=== PATIENT | male | born 1980 | race Caucasian/White ===

== ENCOUNTER 2021-08-07 10:43 | Emergency (ER) | payer OTHER, SELFPAY ==
[2021-08-07 11:02] VITALS: BP 147/83; PULSE 100; RESP 16; TEMP 36.6; O2SAT 97
--- NOTE | 2021-08-07 11:28 | ED.GENADULT ---
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 Has pain of 3 out of 10 is tender to touch-patient states certain activities cause a radiating pain into the right inguinal area Related Data Home Medications Medication Instructions Recorded Confirmed omeprazole 40 mg PO DAILY 08/07/21 08/07/21 Allergies Allergy/AdvReac Type Severity Reaction Status Date / Time No Known Allergies Allergy Verified 08/07/21 11:15 Review of Systems Review of Systems: CONSTITUTIONAL: Denies fever, chills, sweats. EYES: Denies visual changes, redness, discharge. ENT: Denies rhinorrhea, congestion, sore throat, otalgia. CARDIOVASCULAR: Denies chest pain, palpitations, edema. RESPIRATORY: Denies dyspnea, wheezing, cough GASTROINTESTINAL: Denies abdominal pain, nausea, vomiting, diarrhea. Has a lump along navel that he states occurred after being at work GENITOURINARY: Denies dysuria, hematuria, abnormal discharge SKIN: Denies rash or itching. NEUROLOGIC: Denies numbness, or focal weakness. PSYCHIATRIC: Denies anxiety or depression. [facility] Past Medical History Medical History GERD (gastroesophageal reflux disease) Family History Family History (Updated 08/07/21 @ 11:39 by Jennifer Pruitt CNP) Other Hypertension Social History Social History (Updated 08/07/21 @ 11:39 by Jennifer Pruitt CNP) Smoking packs per day: 0.5 Smoking cigarettes per day: 10.0 Smoking status: Current every day smoker Alcohol intake: current Comments At time of signature, I agree with nursing past medical, surgical, social and family history. There is no relevant family history pertinent to the presenting complaint. Patient's blood pressure is elevated is probably due to the situation with Workmen's Comp. and his job and trying to get out of care but has an appointment with his primary care physician on August 16 Exam Narrative: GENERAL: This is a well-nourished, well-developed patient, in mild distress. HEAD: normocephalic, atraumatic. EYES: Sclera clear/white. Vision is grossly intact. EARS: External ears normal. Hearing grossly intact. NOSE: External nose normal without nasal discharge, nares without redness, no rhinorrhea. THROAT: Mucous membranes moist, NECK: Neck supple, non-tender CARDIOVASCULAR: Regular rate and rhythm without murmurs, gallops, or rubs. RESPIRATORY: Clear to auscultation. Breath sounds equal bilaterally. No wheezes, rales, or rhonchi. GASTROINTESTINAL: Abdomen soft, positive bowel sounds, 4 x 6 periumbilical region that appears to be hernia on right of umbilicus SKIN: warm, intact with no suspicious lesions or rash, good texture and turgor. NEURO: awake, alert, and oriented to person, place and time. There were no obvious focal neurologic abnormalities. Steady gait EXTREMITIES: Normal range of motion. BACK: Nontender without deformity Course Course Emergency Course: Patient comes to [facility] for evaluation of what appears to be in a periumbilical hernia that was caused through activity done at work Physical exam shows a 6 x 4 tender soft lesion to the right umbilical area and will require CT of the abdomen and pelvis along with referral to general surgery Given general surgeon on-call he is to see his primary care physician later in the little over a week and yvonne
== END 2021-08-07 11:59 | disposition home or self-care (01) ==
PROVIDERS: Emergency Provider Nurse Practitioner; PCP Nurse Practitioner Family
DX: K42.9 Umbilical hernia without obstruction or gangrene (principal); F17.210 Nicotine dependence, cigarettes, uncomplicated
CPT/HCPCS: 99211; G0463

== ENCOUNTER → 2021-09-28 01:54 | Outpatient (CLI) | payer OTHER, SELFPAY ==
[2021-09-28 14:46] LABS: SARS-CoV-2 RNA PCR Negative
== END ==
PROVIDERS: PCP Nurse Practitioner Family; Visit Provider Surgery
DX: Z01.812 Encounter for preprocedural laboratory examination (principal); Z20.822 Contact with and (suspected) exposure to COVID-19
CPT/HCPCS: C9803; U0003; U0005

== ENCOUNTER 2021-10-02 00:51 | Day surgery (SDC) | payer OTHER, SELFPAY ==
[2021-09-25 15:08] VITALS: BMI 33.0
--- NOTE | 2021-09-25 15:11 | SUR.PREOP ---
Report to the Outpatient Waiting Room, entrance under the green pavilion located off [facility], at time 0800_ on date _10/02/21_. OR Time: _1000 . - A mask is required within the hospital. . Preoperative COVID Testing Requirements: No COVID Test needed if: (proof is required; if not received patient will have Rapid Test prior to entry) - Patient has received COVID Vaccine at least 14 days prior to procedure date or - Patient has positive COVID test result within last 90 days of surgery date. COVID Test needed if above criteria is not met If not COVID vaccinated a COVID test must be conducted within 72 hours of surgery and patient is asked to isolate self from time of testing until procedure. You will go to the [facility] for your COVID testing. The [employer] [facility] site is located at the corner of [address] [facility]. You will only be called if COVID results are positive and your surgeon may reschedule your elective surgery date. Patients may have clear liquids (water, carbonated beverages, clear teas, apple juice) until 3 hours prior to surgery with a maximum of 20 ounces. - No food from midnight until time of surgery - Infants may have breast milk until 4 hours before surgery, infant formula 6 hours prior to surgery. - Children will be allowed to drink immediately following surgery. If applicable, please bring a bottle or sippy cup to assist with drinking. Juice, water, soda, and popsicles are readily available. For infants on formula, please bring formula the day of surgery. Pacifiers are allowed. Take the following medications with a SIP of water the morning of surgery: n/a Medications to discontinue per physician n/a Date to take last dose__n/a Please no make-up, nail khmer, hairspray, perfume, deodorant, or body powder the day of surgery. No jewelry (including any body piercings) or valuables the day of surgery, leave them at home. Please take a shower or bath the night before, or the morning of, surgery with an antibacterial soap. Wear comfortable, loose fitting clothing. Children are encouraged to wear pajamas. - Jewelry must be removed prior to entering the operating room. Rings and piercings that are not removed may be cut off. - The hospital will not accept responsibility for valuables. - Please leave all valuables, including medications, at home the day of surgery. hibiclens shower morning of surgery If you are going home after surgery, a licensed hazardous materials driver must drive you home. - NO public transportation without another adult. - We recommend that an adult stay with you for 24 hours following discharge. - We also recommend that you do not drive, make important decision, drink alcoholic beverages, or take any drugs that were not prescribed by your health care provider for at least 24 hours after your discharge time. Follow any additional instructions given to you from your surgeon. Telephone instructions given to __tre stewart and asked if any additional questions and then verbalized understanding. Patient advised to call surgeon office or pre surgery nurse liaison [phone] if any additional questions.
--- NOTE | 2021-09-30 16:56 | PM.SD2 ---
Same Day Admit/Disch: HPI History of Present Illness Chief complaint: umbilical hernia Narrative: Mike Souza is a 40 year old male Who noticed a painful bulge in the umbilical area. He had been doing some heavy work in a crawl space just before . A couple days later he noticed a bulge in the umbilical area that has been uncomfortable and occasionally painful. He was seen in the office and found to have an umbilical hernia. He is taken to surgery at this time for repair. [facility] Past Medical History Medical History GERD (gastroesophageal reflux disease) Surgical History Surgical History No history of previous surgery Family History Family History Sibling Melanoma Father COPD (chronic obstructive pulmonary disease) Other Hypertension Social History Social History Smoking packs per day: 0.5 Smoking cigarettes per day: 10.0 Smoking status: Current every day smoker Tobacco type: cigarettes Additional smoking assessment comments: smokes 2 cigarettes currently,1ppd x25 Alcohol intake: current Drinks per week: 1 Alcohol use details: socially Living arrangements: with family Spiritual care concerns: No Same Day Admit/Disch: Med Pre-admit Medications Home Medications Medication Instructions Recorded Confirmed Type omeprazole 40 mg PO DAILY 08/07/21 10/02/21 History hydrocodone-acetaminophen 1 - 2 tablet PO Q6H PRN #10 tablet 10/02/21 Rx ketorolac 10 mg PO Q6H 4 Days #16 tablet 10/02/21 Rx Exam Const: General: comfortable, no acute distress, alert and awake HENMT: Head: normocephalic and atraumatic Mouth: Yes Normal oral and palatal mucosa present Eyes: Conjunctivae: conjunctivae normal Pupils: Equal, round and reactive pupils present EOM: EOMs intact bilaterally Neck: Neck: normal visual inspection, no lymphadenopathy and nontender Resp: Effort & Inspection: normal respiratory effort Auscultation: clear to auscultation bilaterally Cardio: Rate: regular rate Rhythm: regular rhythm Heart sounds: no gallops, no murmurs and no rubs GI: Inspection: non-distended and visible herniation ( Umbilical) GI Palp: Yes Soft to palpation, Yes Tenderness to palpation present (GI), No Guarding due to palpation present (GI), No Hepatomegaly present, No Splenomegaly present and Yes Hernia present ( umbilical hernia, tender, just to the right of the umbilicus) Skin: Lesions: no lesions Rashes: no rashes Neuro: General: no focal motor deficits and CN's II-XI intact bilaterally Cranial nerves: Yes Equal, round and reactive pupils present, Yes Bilaterally intact EOM present, Yes facial symmetry and Yes Midline tongue present Speech: normal speech Motor exam (neuro): 5/5 motor strength present throughout and Motor abnormalities not present Extrem: General: no clubbing, cyanosis or edema and edema Psych: Affect: normal affect Thought process: Normal thought process present Insight: Good insight present (Psych) DS: Summary Time Spent with Patient Time attestation: Total time spent providing and/or coordinating discharge services: DS: Admitting Diagnosis Discharge Date 10/02/2021 Admitting Diagnosis umbilical hernia -plan to repair with mesh under anesthesia. The procedure the risks the benefits have been discussed. All questions were answered. He agrees to go ahead. smoker-- Advised to quit smoking. Patient admits that he was planning on this anyway. GERD DS: Discharge Diagnosis Discharge Diagnosis (1) Umbilical hernia: Code(s): K42.9 - Umbilical hernia without obstruction or gangrene Status: Acute Discharge Plan Discharge Patient Disposition: Home, Self-Care Discharge Instructions: 1. May shower the day after s
[2021-10-02] MEDS: LACTATED RINGERS 1,000 ML 30 ML IV CONT ×2 (07:34→10:09)
[2021-10-02] MEDS: ACETAMINOPHEN 500 MG TABLET 1000 MG PO (07:34)
[2021-10-02 07:38] VITALS: BP 126/70; PULSE 90; RESP 16; TEMP 36.6; O2SAT 97
[2021-10-02] MEDS: KETOROLAC 15 MG/ML VIAL (*BKC) IV PUSH (07:38)
--- NOTE | 2021-10-02 07:52 | P.PNAN_ITS ---
Anes - Initial Pre Proc Eval Procedure: Operation Date: 10/02/21 09:00 Proposed Procedures p Open Umbilical Hernia Repair with Mesh - David Morley MD Date/Time: 10/02/21 07:52 Surgeon: David Morley MD Pre Op Diagnosis: umbilical hernia Patient Data Age: 40 Gender: M Height: 1.85 m Weight: 105 kg Last Vital Signs Temp 36.6 C 10/02/21 07:38 Pulse 90 10/02/21 07:38 Resp 16 10/02/21 07:38 BP 126/70 10/02/21 07:38 Pulse Ox 97 10/02/21 07:38 Allergies Allergy/AdvReac Type Severity Reaction Status Date / Time No Known Allergies Allergy Verified 10/02/21 07:01 Home Medications Medication Instructions Recorded Confirmed Type omeprazole 40 mg PO DAILY 08/07/21 10/02/21 History Patient hx anesthesia problems: none Family hx anesthesia problems: none Results Review: All pre-operative results and documents have been reviewed as part of the pre-operative evaluation. [facility] Past Medical History Medical History GERD (gastroesophageal reflux disease) Surgical History Surgical History No history of previous surgery Family History Family History Sibling Melanoma Father COPD (chronic obstructive pulmonary disease) Other Hypertension Social History Social History Smoking packs per day: 0.5 Smoking cigarettes per day: 10.0 Smoking status: Current every day smoker Tobacco type: cigarettes Additional smoking assessment comments: smokes 2 cigarettes currently,1ppd x25 Alcohol intake: current Drinks per week: 1 Alcohol use details: socially Living arrangements: with family Spiritual care concerns: No Anes - Eval Final PreProcedure Day of Procedure 10/02/21 07:52 Patient weight: overweight Heart: regular rate and rhythm Lungs: decreased breath sounds Airway: Mallampati scale class II Neurological: alert and oriented Last oral intake: >/= 8 hours ASA classification: II Emergent: no Anesthetic plan: proceed Anesthesia type and monitoring: general GIVS and standard monitoring Results Review: All pre-operative results and documents have been reviewed as part of the pre-operative evaluation. Informed Consent: The patient's anesthetic plan and its attendant risks and benefits were discussed with the patient/family/POA. Questions were solicited and answers provided to the satisfaction of the patient/family/POA.
--- NOTE | 2021-10-02 08:54 | WPDHPUPDATE1 ---
History and Physical Update Update Date/Time: 10/02/21 08:54 History and Physical has been reviewed, including an updated exam of the patient. There are NO changes in the patient's condition. Risks, benefits, and alternatives have been discussed and questions answered. Patient agrees to proceed with procedure.
[2021-10-02] MEDS: ceFAZolin 2 GM/D5W 50 ML 2 GM/50 ML BAG IVPB (09:02)
[2021-10-02] MEDS: BUPIVACAINE HCL 0.5% PF 30 ML VIAL INFILTRATE (09:14)
[2021-10-02 10:15] VITALS: BP 105/61; PULSE 68; RESP 15; TEMP 36.1; O2SAT 98
--- NOTE | 2021-10-02 10:17 | P.OP_ITS ---
Procedure Note - Detailed Date of Procedure 10/02/21 Pre-op Diagnosis umbilical hernia Post-op Diagnosis same Procedure Performed Umbilical hernia repair with 4.[address] patch Surgeon David Morley MD License Distributor Reina Delgado [employer] Anesthesia MAC and local (0.5% Marcaine) Indications Patient is noticed a bulge in the umbilical area which is occasionally uncomfortable. He is taken to surgery now for repair Findings Umbilical hernia. Defect was about 1 cm. Description of Procedure Patient was taken to surgery and IV sedation was administered. The abdomen was prepped and draped. The proposed incision was marked along the lower margin of the umbilicus. Local was then infiltrated in the area of the anticipated incision as well as the deeper subcutaneous tissues as well. Incision was made deepened through the subcutaneous. The hernia sac was found and we dissected around the hernia sac and down to the fascia. Additional local was infiltrated into the neck of the hernia as well as the fascia. I then divided the hernia sac at its neck near the fascia. It was divided circumferentially. We then dissected the herniated contents of properitoneal fat free from the hernia sac and from the umbilical skin. Eventually we dissected completely through the hernia sac excising it and discarding it. The herniated properitoneal fat was likewise divided using the cautery and discarded. I then undermined the subcutaneous around the hernia defect so that the fascia was clearly evident. I then cut any residual hernia sac from the edges of the defect. I was able to place a finger in the hernia defect and clear some properitoneal fat from around the edges of the hernia defect on the underside of the fascia. A 4.3 cm Ventralex [place] was chosen. It was folded and placed in the defect. It was positioned symmetrically. I then placed cranial and caudal transfascial sutures of 0 Ethibond. Each of these sutures was placed in such a fashion that it would advance the edges of the hernia defect towards 1 another. Tying the suture had the desired effect. The straps to the hernia mesh were then cut away and discarded. I closed the defect over the mesh using interrupted 0 Ethibond suture. Each of these suture incorporated a bit of mesh as well. Repair looked good. I infiltrated additional local around the area of the repair. I then sutured the umbilical skin to the fascia with 3-0 Vicryl suture. Some subcutaneous 3-0 Vicryl sutures were placed. Subcuticular interrupted 3-0 and 4-0 Vicryl sutures were placed in the skin. The skin was finally closed with a running 4-0 Monocryl skin suture. The wound was dressed with Exofin surgical adhesive. The patient was awakened and taken to recovery in good condition. Sponge needle counts were correct x2. Implants 4.[address] underlay mesh Estimated Blood Loss -5 Drains No Packing No Pathology none sent Complications No immediate complications Condition stable Disposition PACU
[2021-10-02 10:30] VITALS: BP 102/51; PULSE 75; RESP 15; O2SAT 99
[2021-10-02 10:40] VITALS: BP 104/69; PULSE 74; RESP 13; O2SAT 99
[2021-10-02 10:50] VITALS: BP 126/73; PULSE 71
[2021-10-02 11:20] VITALS: BP 116/66; PULSE 72
== END 2021-10-02 11:35 | disposition home or self-care (01) ==
PROVIDERS: PCP Nurse Practitioner Family; Visit Provider Surgery
PROC: (CPT 49585; principal; 2021-10-02 09:00)
DX: K42.9 Umbilical hernia without obstruction or gangrene (principal); K21.9 Gastro-esophageal reflux disease without esophagitis; F17.210 Nicotine dependence, cigarettes, uncomplicated
CPT/HCPCS: 49585; A9270; C1781; J0690; J1885; J2250; J2270; J2704; J7120